=== PATIENT | male | born 1970 | race Caucasian/White ===

== ENCOUNTER 2018-04-03 08:08 | Emergency (ER) | payer SELFPAY ==
--- NOTE | 2018-04-03 09:16 | RADIOLOGY REPORT (SQ) ---
EXAM DESCRIPTION: ANKLE RIGHT COMPLETE COMPLETED DATE/TIME: 04/03/2018 9:01 am REASON FOR STUDY: pain COMPARISON: None. NUMBER OF VIEWS: Three views. TECHNIQUE: AP, lateral, and oblique without weight bearing radiographic images acquired of the right ankle. LIMITATIONS: None. FINDINGS: MINERALIZATION: Normal. BONES: No acute fracture or dislocation. No worrisome bone lesions. No significant osteophytes. JOINTS: No effusions. SOFT TISSUES: No soft tissue swelling. No foreign body. OTHER: No other significant finding. IMPRESSION: NO SIGNIFICANT FINDING IN THE RIGHT ANKLE. NO EXPLANATION FOR PAIN. TECHNICAL DOCUMENTATION: JOB ID: [id number] [employer]- All Rights Reserved Reading location - [facility]workstation [email or web address]
--- NOTE | 2018-04-03 10:31 | ER Document Report ---
ED General - General Chief Complaint: Ankle Injury Stated Complaint: RIGHT ANKLE PAIN Time Seen by Provider: 04/03/18 08:44 Notes: 48-year-old male presents emergency department complaining of an inversion injury to his right ankle while at work 2 days ago. States that he has been trying to walk on it ever since but the pain continues. States that the pain worsens with repeated use particularly when going up and down stairs. Denies any instability, denies any numbness, tingling, weakness. Complains of the worst pain is along the right lateral malleolus just posterior to the lateral malleolus. TRAVEL OUTSIDE OF THE [place] IN LAST 30 DAYS: No - Related Data Allergies/Adverse Reactions: No Known Allergies Allergy (Unverified 04/03/18 08:09) Past Medical History - General Information source: Patient - Social History Smoking Status: Current Every Day Smoker Chew tobacco use (# tins/day): No Frequency of alcohol use: None Drug Abuse: None Family History: Reviewed & Not Pertinent Patient has suicidal ideation: No Patient has homicidal ideation: No Renal/ Medical History: Denies: Hx Peritoneal Dialysis Review of Systems - Review of Systems Constitutional: No symptoms reported Musculoskeletal: See HPI Skin: No symptoms reported Hematologic/Lymphatic: No symptoms reported Neurological/Psychological: No symptoms reported Physical Exam - Vital signs Vitals: Temp Pulse Resp BP Pulse Ox 98.9 F 81 17 110/77 96 04/03/18 08:14 04/03/18 08:14 04/03/18 08:14 04/03/18 08:14 04/03/18 08:14 - General General appearance: Appears well, Alert In distress: None - HEENT Head: Normocephalic, Atraumatic Eyes: Normal Pupils: PERRL - Respiratory Respiratory status: No respiratory distress - Cardiovascular Pulses: Normal: Posterior tibial, Dorsalis pedis Normal capillary refill: Yes - Extremities Notes: Distal fibula tender palpation on the right side, no swelling, there is some tenderness posterior to the right fibula distally as well. He does have full range of motion, there is no instability, there is no break in the skin, there is a small ecchymosis just posterior to the right distal fibula. Sensation is intact across the right foot. - Psychological Associated symptoms: Normal affect, Normal mood - Skin Skin Temperature: Warm Skin Moisture: Dry Skin Color: Normal Course - Re-evaluation Re-evalutation: 04/03/18 10:31 Right ankle x-ray is negative, injuries consistent with a sprain. Patient will be placed in Sylvester wrap and on crutches. Discharged home. - Vital Signs Vital signs: Temp Pulse Resp BP Pulse Ox 98.9 F 81 17 110/77 96 04/03/18 08:14 04/03/18 08:14 04/03/18 08:14 04/03/18 08:14 04/03/18 08:14 Procedures - Immobilization Right Ankle Pre-Proc Neuro Vasc Exam: Normal Immobilizer type: Sylvester wrap Performed by: RN Post-Proc Neuro Vasc Exam: Normal Alignment checked and good: Yes Discharge - Discharge Clinical Impression: Right ankle sprain Qualifiers: Encounter type: initial encounter Involved ligament of ankle: calcaneofibular ligament Qualified Code(s): S93.411A - Sprain of calcaneofibular ligament of right ankle, initial encounter Condition: Stable Disposition: HOME, SELF-CARE Additional Instructions: Ankle Exercise Program To restore the ankle to normal, it's important to strengthen the muscles that support it -- especially those that lift the foot upward. Good muscle tone will keep stress off the injury while it heals. EARLY - Once the doctor allows you to walk on the ankle, you can begin. Lean your back against a wall. Standing on your heels, lift the balls of both feet up, hold a second, then back down. Work up to 100 repetitions. Next, using the wall for balance, stand on one foot. Lift the heel up, then down. Work up to 100 repetitions for each foot. BALANCE TRAINING - To retrain the ankle to react to "tipping", stand on one foot for two minutes. Go from flat-footed to standing on the toes and back again slowly. Repeat with the other foot. LATER - When your ankle has regained full motion and you're walking pain- free, begin exercise against resistance. In a sitting position, pull the top of the foot towards you against resistance 20 times. Use either elastic material or a weight attached to the toes. Swing the knee so the foot is to the side of the body, and repeat. Sprained Ankle Your sprained ankle results from stretching or tearing of the ligaments which support the ankle. This usually results from twisting the foot inward and under. The ligaments will require time and protection in order to heal properly. Many ankle sprains are quite disabling, and should be taken seriously. The usual treatment for an ankle sprain is cold packs; protection with tape , splints, or wraps; elevation; and staying off the ankle for at least a day. As the ankle improves, you can walk IF it's not painful to bear weight. Sports are best postponed until healing is complete. More serious sprains usually require strengthening exercises after early healing. Your physician has assessed the seriousness of the ligament injury to your ankle. However, the treatment may change, depending on how your ankle progresses. If further exams were recommended, it is important that you follow through. Call the doctor if your foot becomes numb, painful, or severely swollen. Prescriptions: Hydrocodone/Acetaminophen [[place] 5-325 mg Tablet] 1 tab PO Q6HP PRN #6 tablet PRN Reason: Referrals: OLIVER MADDEN MD [ACTIVE STAFF] - Follow up as needed
[2018-04-03 10:53] VITALS: BP 110/68
== END 2018-04-03 10:53 | disposition home or self-care (01) ==
LOC: ER 08:08
DX: S93.411A Sprain of calcaneofibular ligament of right ankle, initial encounter (principal); M25.571 Pain in right ankle and joints of right foot; X50.1XXA Overexertion from prolonged static or awkward postures, initial encounter; F17.200 Nicotine dependence, unspecified, uncomplicated
CPT/HCPCS: 99283